=== PATIENT | female | born 1950 | race Caucasian/White ===

== ENCOUNTER → 2016-07-17 | Outpatient (CLI) | payer OTHER ==
[~2016-07-17] MED LIST: BIOTPOW20 PO; CALCIUM +D PO; COUM2.5T11 PO; PERC5TAB6 PO; SERT50TA PO; VITA200038 PO; ZOCO10TA PO
[2016-07-17 11:15] LABS: INR 0.94
[2016-07-17 11:29] LABS: MEAN CORPUSCULAR HEMOGLOBIN 29.4 pg (27.0-33.0); MEAN CORPUSCULAR HGB CONC 33.4 g/dl (32.0-36.5); MEAN CORPUSCULAR VOLUME 87.9 fl (80.0-96.0); RED CELL DISTRIBUTION WIDTH 13.7 % (11.5-14.5); WHITE BLOOD COUNT 5.1 K/mm3 (4.0-10.0)
--- NOTE | 2016-07-17 11:30 | REP ---
Chest two views HISTORY: Preop Comparison: None An ill-defined parenchymal density is present in the left lower lobe. The right lung is clear. The heart is normal in size. The pulmonary vasculature is normal in appearance. The bony structure is intact. IMPRESSION: There is an ill-defined parenchymal density in the left lower lobe. CT of the chest is recommended for further evaluation. Signed by Yusuf Rankin MD 07/17/2016 11:21 A
--- NOTE | 2016-07-17 11:31 | ECGEPIP ---
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
[2016-07-17 11:34] LABS: ALBUMIN 4.2 GM/DL (3.2-5.2); ALBUMIN/GLOBULIN RATIO 1.45 (1.00-1.93); ALKALINE PHOSPHATASE 112 U/L (45-117); ALT/SGPT 23 U/L (12-78); ANION GAP 6 MEQ/L (8-16); AST/SGOT 18 U/L (15-37); BILIRUBIN,TOTAL 0.6 MG/DL (0.2-1.0); BLOOD UREA NITROGEN 12 MG/DL (7-18); CALCIUM LEVEL 9.4 MG/DL (8.8-10.2); CARBON DIOXIDE LEVEL 29 MEQ/L (21-32); CHLORIDE LEVEL 106 MEQ/L (98-107); CREATININE FOR GFR 0.89 MG/DL (0.55-1.02); GLOMERULAR FILTRATION RATE > 60.0 (>45); GLUCOSE, FASTING 90 MG/DL (80-110); POTASSIUM SERUM 4.5 MEQ/L (3.5-5.1); SODIUM LEVEL 141 MEQ/L (136-145); TOTAL PROTEIN 7.1 GM/DL (6.4-8.2)
== END ==
LOC: M ADMPAT 09:14
PROVIDERS: ATTEND Orthopaedic Surgery
DX: Z01.818 Encounter for other preprocedural examination (principal); M17.12 Unilateral primary osteoarthritis, left knee

== ENCOUNTER → 2016-07-22 | Outpatient (CLI) | payer OTHER | LOC: M RAD 18:10 | PROVIDERS: ATTEND Family Medicine | DX: R91.8 Other nonspecific abnormal finding of lung field (principal) ==

== ENCOUNTER → 2016-07-24 | Outpatient (CLI) | payer OTHER ==
[~2016-07-24] MED LIST changes: +ISOVUE-370 76% 100ML VIAL (Q9967) As Ordered ONE
--- NOTE | 2016-07-24 19:15 | REP ---
CT of the chest with IV contrast: Comparison is the PA and lateral plain film study of the chest dated 07/17/2016. On the comparison plain film study. There is a poorly defined mass in the left mid lung. A CT was recommended for follow up. On the CT study today there is no left lung mass. Specifically there is no mass that would correlate with the finding on the plain film study. I note there is deformity of the left fourth rib anteriorly in the approximate location where this mass was identified on plain films. This rib deformity of a masquerading as a lung mass on plain films. There are no infiltrates or effusions. Lung gonzalez otherwise clear. There is no mediastinal, hilar or axillary adenopathy. The thoracic aorta is unremarkable. Cardiac size is normal. The visualized upper abdominal contents are unremarkable. Impression: There is no lung mass, in particular, there is no left lung mass. The finding on the comparison plain film study may be artifact from deformity of the anterior arch of the left fourth rib. Otherwise, negative CT study of the chest. Signed by Franco Ni MD 07/24/2016 07:07 P
== END ==
LOC: M RAD 17:28
PROVIDERS: ATTEND Family Medicine
DX: R91.8 Other nonspecific abnormal finding of lung field (principal)

== ENCOUNTER 2016-07-27 10:38 | Inpatient (IN) | payer OTHER ==
[2016-07-17 10:01] VITALS: BP 174/79
--- NOTE | 2016-07-22 16:23 | HPE ---
DATE OF ADMISSION: 07/27/2016 HISTORY OF PRESENT ILLNESS: This is a pleasant female with continuing symptomatic left knee osteoarthritis. She consented for a left total knee arthroplasty per Dr. Raz Arboleda. X-rays are consistent with advanced osteoarthritis. She recently saw Dr. Alexander for medical optimization, which we are still awaiting documentation saying she is cleared. ALLERGIES: None known to drugs. CURRENT MEDICATION LIST: - Zoloft 20 mg - Zocor 5 mg - vitamin D 1000 units - Biotin maximum strength 10,000 mcg - calcium 600 plus D 600/200 mg unit She has a prescription for Coumadin 5 mg which she will take the evening before surgery. MEDICAL PROBLEM LIST: Includes: 1. Left knee symptomatic osteoarthritis. 2. Depression. 3. Hypercholesteremia. SOCIAL HISTORY: She is not working. She has never smoked and she does not take in ethanol. FAMILY HISTORY: Positive for hypercholesteremia, heart disease, hypertension, cancer, thyroid disease, arthritis. REVIEW OF SYSTEMS: She denies chest pain, shortness of breath, dyspnea on exertion, fever, chills, malaise, upper respiratory or urinary tract symptoms. PHYSICAL EXAMINATION: Height 61 inches, weight 128. Temperature 98.4, blood pressure was taken at 130/80. She is a pleasant, well-developed, well-nourished female in no acute distress, alert and oriented times three. Mood and affect are appropriate. She is ambulating with favoring of the right lower extremity. No gross antalgia about the left. Left lower extremities were inspected. Skin temperature, sensory and motor are within normal limits. Left knee positive medial joint line tenderness with crepitance about the knee through flexion and extension. Otherwise stable about the collateral ligaments. Patellar and quad tendons without popliteal fossa, mass or pain. Hip range of motion is non-irritable or limited through internal and external range of motion. Bowel sounds times four, soft, nontender. Chest rises symmetrically. Regular rate and rhythm. Lungs are clear to auscultation. Neck is supple. Negative jugular venous distention (JVD) or bruits. Normocephalic. LABORATORY DATA AND DIAGNOSTICS: Reviewed. There was 20,000 E-coli on UA. In addition to blood, urine auto 1+, bacteria urine auto 1+, anion gap 6, prothrombin time 19.1, leukocyte esterase urine auto 3+, blood urine auto +1, WBC urine auto 4, RBC urine auto 6. GFR greater than 60. IMPRESSION: 1. Symptomatic left knee osteoarthritis. 2. The patient consented for a left total knee arthroplasty per Dr. Raz Arboleda. 3. Medical optimization completed by Dr. Alexander on 07/20/2016, we are still awaiting clearance report. 4. On-call to operating room (OR) 1 gram IV Kefzol in OR. 5. Sequential compression device (SCD) and thromboembolic-deterrent stockings (TEDS) in OR. 6. Bactrim DS times five days per positive Escherichia (E) coli on urinalysis (UA). The patient understands and agrees with the plan. PHUC
[~2016-07-27] VITALS: Ht 154.9 cm; Wt 59.0 kg
[~2016-07-27 10:38] MED LIST changes: -ISOVUE-370 76% 100ML VIAL (Q9967) As Ordered ONE
[2016-07-27] MEDS ORDERED: EPINEPHrine INJ 1 MG/ML 1ML AMP As Ordered ONE (10:56)
[2016-07-27] MEDS ORDERED: ceFAZolin 1GM INJ (J0690) As Ordered ONE (10:56)
[2016-07-27] MEDS ORDERED: TRANEXAMIC ACID 100 MG/ML 10ML VIAL As Ordered ONE (10:56)
[2016-07-27] MEDS ORDERED: BUPIVACAINE HCL 0.25% 30 ML VIAL As Ordered ONE (10:56)
[2016-07-27] MEDS ORDERED: ceFAZolin SOD 1 GM in D5W MINI-BAG PLUS 50 ML IV ONE (11:00)
[2016-07-27] MEDS ORDERED: LR 1,000 ML IV ONE (11:00)
[2016-07-27] MEDS ORDERED: fentaNYL 100 MCG/2 ML INJECTION (J3010) As Ordered ONE ×3 (11:21→12:21)
[2016-07-27] MEDS ORDERED: MIDAZOLAM INJ 2 MG/2 ML VIAL (J2250) As Ordered ONE ×2 (11:21→12:18)
[2016-07-27] MEDS ORDERED: MIDAZOLAM INJ 2 MG/2 ML VIAL (J2250) IV ONE (12:00)
[2016-07-27] MEDS ORDERED: fentaNYL 100 MCG/2 ML INJECTION (J3010) IV ONE (12:00)
[2016-07-27] MEDS ORDERED: PROPOFOL 200 MG/20 ML VIAL As Ordered ONE (13:03)
--- NOTE | 2016-07-27 13:12 | IPN ---
DATE OF SERVICE: 07/27/2016 The patient seen and examined. She wished to ahead with a knee replacement on the left. She has been through it on the right. She understands the nature of this, the risks of bleeding, infection, damage to nerves and vessels, persistent pain, wear loosening, blood clots, medical problems, , among others; and we will proceed with a left knee replacement, per her request.
[2016-07-27] MEDS ORDERED: MORPHINE 1MG/ML IN 0.9% NACL 100ML IV BAG As Ordered ONE (14:01)
[2016-07-27] MEDS ORDERED: fentaNYL 100 MCG/2 ML INJECTION (J3010) IV PRN (14:30)
[2016-07-27] MEDS ORDERED: FLEET ENEMA PR PRN (14:30)
[2016-07-27] MEDS ORDERED: diphenhydrAMINE INJ 50MG/ML VIAL (J1200) IV PRN (14:30)
[2016-07-27] MEDS ORDERED: NALBUPHINE HCL 10 MG/ML AMP (J2300) IV PRN (14:30)
[2016-07-27] MEDS ORDERED: PATIENT IS CURRENTLY ON AN ON-Q PAIN BUSTER PAIN RELIEF SYSTEM XX SCH (14:30)
[2016-07-27] MEDS ORDERED: NALOXONE INJ 0.4 MG/1 ML VIAL (J2310) IV PRN (14:30)
[2016-07-27] MEDS ORDERED: MORPHINE 1MG/ML IN 0.9% NACL 100ML IV BAG IV PRN (14:30)
[2016-07-27] MEDS ORDERED: ONDANSETRON 4MG/2ML VIAL (J2405) IV PRN ×3 (14:30)
[2016-07-27] MEDS ORDERED: EPIDURAL/PCA KEYS XX PRN (14:30)
[2016-07-27] MEDS ORDERED: ACETAMINOPHEN TAB 650MG DOSE (2X325MG) PO PRN (14:30)
[2016-07-27] MEDS ORDERED: LR 1,000 ML IV SCH (14:30)
[2016-07-27 15:10] VITALS: BP 131/62
[2016-07-27 15:45] VITALS: BP 125/69
--- NOTE | 2016-07-27 15:52 | CR.PDOC ---
[facility] Consultation Consultation HOSPITALIST CONSULT NOTE Date of consult: 07/27/2016 Referring Provider: Dr. Arboleda PCP: Dr. Alexander Reason for Consult: Medical management HPI: 66-year-old female with osteoarthritis, hyperlipidemia, depression who underwent total left knee arthroplasty today with Dr. Arboleda. We have been consulted for medical management of chronic medical issues. The patient is seen postoperatively, and she denies any chest pain, difficulty breathing, or vomiting. She reports that she is feeling well. Past medical history: osteoarthritis, hyperlipidemia, depression Past surgical history: Bilateral total knee arthroplasties, multiple surgeries on her fingers, multiple bunion surgery, hysterectomy Family history: Hyperlipidemia, heart disease, hypertension, cancer, thyroid disease, arthritis Social history: The patient has never smoked and she does not drink any alcohol. Allergies: No known drug allergies Review of systems: General: Negative for fever and chills Eyes: Negative For vision changes and ocular discharge ENT: Negative for sore throat and nose bleed Cardiovascular: Negative for chest pain and palpitations Respiratory: Negative for cough and shortness of breath GI: Negative for nausea, vomiting, diarrhea, constipation Musculoskeletal: Positive for chronic neck pain Skin: Negative for rash Neuro: Positive for headache, negative for dizziness Psych: Negative for depression and suicidal ideation Endocrine: Negative for polyuria : Negative for dysuria Heme: Negative for bleeding Home meds: See below Physical exam: Vital signs: Vital Sign - Last 24 Hours 07/27/16 07/27/16 07/27/16 07/27/16 11:02 11:25 11:35 11:50 Temp 98.0 Pulse 59 54 56 50 Resp 18 18 18 18 B/P (MAP) 129/64 (85) 114/65 (81) 117/70 (86) 100/57 (71) Pulse Ox 98 98 97 99 O2 Delivery Room Air High Flow Cannula High Flow Cannula High Flow Cannula O2 Flow Rate 3 3 3 07/27/16 07/27/16 07/27/16 07/27/16 12:07 12:15 14:06 14:20 Temp 96.7 Pulse 50 50 60 51 Resp 18 18 18 18 B/P (MAP) 100/58 (72) 113/59 (77) 105/50 (68) 102/55 (71) Pulse Ox 96 96 100 100 O2 Delivery High Flow Cannula High Flow Cannula Room Air Room Air O2 Flow Rate 3 3 07/27/16 07/27/16 07/27/16 14:35 14:50 15:10 Temp 96.2 97.8 Pulse 51 56 55 Resp 18 18 19 B/P (MAP) 111/56 (74) 116/57 (76) 131/62 (85) Pulse Ox 99 99 97 O2 Delivery Room Air Room Air Room Air Gen.: awake, alert, no acute distress Eyes: Extraocular movements intact, normal sclera ENT: Moist mucous membranes Cardiovascular: RRR, no murmurs rubs or gallops Lungs: clear to auscultation bilaterally, no rales, rhonchi, or wheeze Abdomen: Soft, NT/ND, normal BS Extremities: No peripheral edema Neuro: alert and oriented 3, normal speech, no focal deficits Psych: Normal mood with congruent affect Labs and radiology: See below Chest x-ray on 08-01 showed an ill-defined density in the left lower lobe CT of the chest on 07/24/2016 showed no evidence of lung mass, and it was suspected that the density seen on the chest x-ray was artifact from deformity of the anterior arch of the left fourth rib Assessment and plan: 66-year-old female with osteoarthritis, hyperlipidemia, depression who underwent total left knee arthroplasty today with Dr. Arboleda. We have been consulted for medical management. 1. Osteoarthritis: Management as per orthopedics. 2. Hyperlipidemia: Continue home statin. 3. Depression: Continue home Zoloft. 4. Abnormal chest x-ray on 07/17: This was followed up with a CT of the chest on . The CT did not show any evidence of a mass, and it showed that most likely the density seen on the chest x-ray was simply artifact from deformity of the anterior arch of the left fourth rib. DVT prophylaxis: As per her surgical team Thank you for this consult. We will continue to follow along with you. Dr. Lakshmi Martinez will assume coverage in the morning. Vital Signs/I&O Vital Signs Date Time Temp Pulse Resp B/P (MAP) Pulse Ox O2 Delivery O2 Flow Rate FiO2 07/27/16 15:10 97.8 55 19 131/62 (85) 97 Room Air 07/27/16 12:15 3 Allergies Coded Allergies: No Known Drug Allergy (Unverified Allergy, Mild, 07/27/16) Home Medications Scheduled Cholecalciferol (Vitamin D-3) 2,000 Unit Tab, 2,000 UNIT PO DAILY, (Reported) Sertraline Hcl (Sertraline HCl) 50 Mg Tab, 50 MG PO DAILY, (Reported) Simvastatin (Zocor) 10 Mg Tab, 10 MG PO QHS, (Reported) [Calcium +D] , 600 MG PO DAILY, (Reported) MIGEL BURR Jul 27, 2016 15:52
[2016-07-27] MEDS: LR 1,000 ML IV SCH (15:59)
[2016-07-27 16:45] VITALS: BP 125/65
[2016-07-27] MEDS ORDERED: WARFARIN SOD 5 MG TAB PO SCH (17:00)
[2016-07-27 18:00] VITALS: BP 148/70
[2016-07-27 18:45] VITALS: BP 141/72
[2016-07-27] MEDS: PERCOCET 5MG/325MG TAB PO PRN (19:01)
[2016-07-27] MEDS: ceFAZolin SOD 1 GM in D5W MINI-BAG PLUS 50 ML IV SCH (20:46)
[2016-07-27] MEDS: SIMVASTATIN 10 MG TAB PO SCH (20:46)
[2016-07-27] MEDS: SERTRALINE HCL 50 MG TAB PO SCH (20:46)
[2016-07-27 22:00] VITALS: BP 133/73
--- NOTE | 2016-07-28 00:23 | RO ---
DATE OF PROCEDURE: 07/27/2016 PREOPERATIVE DIAGNOSIS: Left knee osteoarthritis. POSTOPERATIVE DIAGNOSIS: Left knee osteoarthritis. PROCEDURE: Left total knee arthroplasty using a PFC rotating platform, cruciate retaining size 2.5 femur and a 2 tray, 12.5 polyethylene, 32 patellar button. SURGEON: Dr. Raz Arboleda MERCHANDISING DIRECTOR: Won Long ANESTHESIA: Spinal. ESTIMATED BLOOD LOSS: Less than 50 mL. COMPLICATIONS: None. INDICATIONS: This is a 66-year-old woman who has had some persistent gradually worsening left knee pain. She has been through a right knee replacement in the past and did well with that. She had severe arthritis involving her left knee, and she wished to go ahead with surgical treatment. She understood the nature of the procedure, risks of bleeding, infection, damage to nerves, vessels, persistent pain, wear, loosening, blood clots, medical problems, , among others. DESCRIPTION OF PROCEDURE: The patient was taken to the operating room, placed in supine position after spinal anesthesia was induced. Left lower extremity was prepped and draped in the usual sterile fashion. A time-out was performed. Tourniquet was inflated. I then created a longitudinal incision over the anterior aspect of the knee. Sharp dissection was carried down through subcutaneous tissue and a medial parapatellar arthrotomy was performed per routine. I then everted the patella, remove some of the fat pad and did a moderate medial release. I flexed the knee up, removed osteophytes. I then used the canal initiating reamer on the femoral side followed by the intramedullary guide set at 5 degrees of valgus and 10 mm cut. This was pinned in place by the multimedia production assistant and the distal femoral cut was made by the multimedia production assistant. This femur was sized to a 2.5, which is what the other side had been. The distal femoral holes were placed with the external rotation guide. Then, the 4-in-1 cutting block was then placed for the 2.5. This was pinned in place and the remaining four cuts were made. The retractors were then placed on the tibial side. The tibial alignment guide was then placed in appropriate amount of valgus and posterior slope. This was pinned in place approximately 8-9 mm off of the high side, which is the lateral side, and it seemed to be an appropriate cut. A little difficult. She did have a little dishing on the medial side where there was severe wear, so I chose this depth. This was pinned in place, the proximal tibia cut was made. I protected the posterior cruciate ligament (PCL), removed this bone and then used the mixer tender to remove soft tissue from either side of the knee and osteophytes from the posterior aspect. The PCL was still intact. I then used the spacer blocks, and the size 12.5 seemed to be the appropriate tissue balance in flexion and extension. Overall alignment was excellent. I then prepared the tibial tray. Retractors were placed. The size 2 tray fit nicely. This was pinned in place, drilled and broached. The trial components were then placed. I removed any remaining osteophytes, and the 12.5 seemed to be the appropriate stability in flexion/extension, had good alignment and the components fit very tightly. I then freehand cut the patella, measured it to be a 32 button which was then drilled and then the trial button was placed, put this through a range of motion. The patella tracked quite nicely. The drill holes were made in the end of the femur. The multimedia production assistant prepared the bone cement in the modern technique on the back table. I irrigated and dried the bony surfaces carefully. The tibial tray was then cemented in place followed by the size 12.5 x 2.5 polyethylene was inserted. We then cemented on the femoral component, removed excess bone cement and then brought the knee out in extension and then cemented on the patella, held this in place with a bone clamp, and the excess bone cement was removed. I then irrigated copiously, placed the TXA solution. We closed the deep layer with interrupted #1 Vicryl sutures. Once the cement had hardened, I removed the clamp and the remaining closure was a running Stratafix suture in each direction with the multimedia production assistant working in one direction and myself in the other. I put the knee through a range of motion. There was no clicking, the knee was very stable and had excellent alignment. Irrigated, closed the subcu with #2-0 Vicryl, the skin with angelika. I then placed the PainBuster catheter through the superolateral aspect of the knee and then primed this and secured it to the side of the thigh in the usual fashion. Sterile dressing was applied. Tourniquet had been deflated. She was taken to recovery in stable condition. There were no known complications. The plan will be routine postoperative for a knee replacement. The multimedia production assistant was instrumental in holding retractors and mixing the bone cement and assisting in wound closure.
[2016-07-28] MEDS: PERCOCET 5MG/325MG TAB PO PRN ×6 (00:39→22:43)
[2016-07-28] MEDS: LR 1,000 ML IV SCH (03:50)
[2016-07-28] MEDS: ceFAZolin SOD 1 GM in D5W MINI-BAG PLUS 50 ML IV SCH (05:41)
[2016-07-28 06:00] VITALS: BP 104/56
[2016-07-28] MEDS ORDERED: ONDANSETRON 4 MG TAB (S0181) PO PRN (06:45)
[2016-07-28] MEDS ORDERED: PERCOCET 5MG/325MG TAB PO PRN ×2 (06:45)
[2016-07-28 07:19] LABS: INR 1.32
[2016-07-28 07:29] LABS: CALCIUM LEVEL 8.3 MG/DL (8.8-10.2); CREATININE FOR GFR 1.02 MG/DL (0.55-1.02); GLOMERULAR FILTRATION RATE 58.1 (>45); MAGNESIUM LEVEL 2.1 MG/DL (1.8-2.4); POTASSIUM SERUM 3.9 MEQ/L (3.5-5.1)
[2016-07-28 07:31] LABS: BASO % 0.3 % (0.0-1.0); EOS # 0.1 K/mm3 (0.0-0.50); EOS % 0.8 % (0.0-3.0); LARGE UNSTAINED CELL # 0.1 K/mm3 (0.0-0.4); LARGE UNSTAINED CELL % 1.1 % (0.0-4.0); LYMPH # 1.4 K/mm3 (1.5-4.5); LYMPH % 16.5 % (24.0-44.0); MEAN CORPUSCULAR HGB CONC 33.5 g/dl (32.0-36.5); MEAN CORPUSCULAR VOLUME 89.5 fl (80.0-96.0); MONO # 0.5 K/mm3 (0.0-0.8); MONO % 5.4 % (0.0-5.0); NEUTROPHILS # 6.5 K/mm3 (1.8-7.7); NEUTROPHILS % 75.8 % (36.0-66.0); PLATELET COUNT, AUTOMATED 183 k/mm3 (150-450); RED CELL DISTRIBUTION WIDTH 13.5 % (11.5-14.5); WHITE BLOOD COUNT 8.6 K/mm3 (4.0-10.0)
[2016-07-28] MEDS: MIRALAX *UNIT DOSE* 17GM PACKET PO SCH ×2 (09:00→09:22)
[2016-07-28] MEDS: MOM 30ML SUSPENSION UDC PO SCH ×2 (09:00→09:22)
[2016-07-28] MEDS: SENOKOT S TAB PO SCH ×2 (09:22→20:44)
[2016-07-28] MEDS: ONDANSETRON 4 MG TAB (S0181) PO PRN (09:23)
[2016-07-28 10:00] VITALS: BP 116/58
[2016-07-28 14:00] VITALS: BP 160/74
--- NOTE | 2016-07-28 15:21 | IPNPDOC ---
Subjective Date Seen The patient was seen on 07/28/16. Subjective Chief Complaint/HPI The patient is a 66-year-old female admitted with a reason for visit of Arthritis Left Knee. Events since last encounter patient complains of severe pain at the surgical site awaiting pain meds so in some discomfort, also complained of nausea and vomiting this am howevere was able to tolerate breakfast. no fever or chills, no chest pain or SOB , no abdominal pain or diarrhea . Objective Physical Examination General Exam: Positive: Alert, Cooperative, No Acute Distress Eye Exam: Positive: PERRLA, Conjunctiva & lids normal, EOMI, Negative: Sclera icteric ENT Exam: Positive: Atraumatic, Mucous membr. moist/pink, Pharynx Normal Neck Exam: Positive: Supple, Negative: JVD, thyromegaly Chest Exam: Negative: Clear to auscultation, Normal air movement, Rales, Rhonchi, Wheezing, Diminished, Other Heart Exam: Positive: Rate Normal, Regular Rhythm, Normal S1, Normal S2, Negative: Murmurs, Rubs Abdomen Exam: Positive: Normal bowel sounds, Soft, Negative: Tenderness, Hepatospenomegaly Extremity Exam: Positive: Normal pulses, Negative: Clubbing, Cyanosis, Edema Assessment /Plan Problems (1) S/P total knee arthroplasty Status: Acute Problem Text: patient had elective left total knee arthroplasty for advanced osteoarthritis. pain control and dvt prophylaxis as per orthopedics. (2) Hyperlipidemia Status: Chronic (3) Depression Status: Chronic Plan/VTE VTE Prophylaxis Ordered?: Yes VS, I&O, 24H, Fishbone Vital Signs/I&O Vital Signs Date Time Temp Pulse Resp B/P (MAP) Pulse Ox O2 Delivery O2 Flow Rate FiO2 07/28/16 14:32 18 07/28/16 14:00 98.8 57 160/74 (102) 96 Room Air 07/28/16 00:39 97 07/27/16 12:15 3 I&O- Last 24 Hours up to 6 AM 07/28/16 06:00 Intake Total 2760 ml Output Total 1700 ml Balance 1060 ml Laboratory Data 24H LABS Laboratory Tests 2 07/28/16 06:45: White Blood Count 8.6, Red Blood Count 3.76L, Hemoglobin 11.3L, Hematocrit 33.6L , Mean Corpuscular Volume 89.5, Mean Corpuscular Hemoglobin 30.0, Mean Corpuscular Hemoglobin Concent 33.5, Red Cell Distribution Width 13.5, Platelet Count 183, Neutrophils (%) (Auto) 75.8H, Lymphocytes (%) (Auto) 16.5L, Monocytes (%) (Auto) 5.4H, Eosinophils (%) (Auto) 0.8, Basophils (%) (Auto) 0.3 , Neutrophils # (Auto) 6.5, Lymphocytes # (Auto) 1.4L, Monocytes # (Auto) 0.5, Eosinophils # (Auto) 0.1, Basophils # (Auto) 0.0, Large Unclassified Cells % 1.1 , Large Unclassified Cells # 0.1, Prothrombin Time 16.5H, Prothromb Time International Ratio 1.32, Anion Gap 7L, Glomerular Filtration Rate 58.1, Blood Urea Nitrogen 12, Creatinine 1.02, Sodium Level 136, Potassium Level 3.9, Chloride Level 103, Carbon Dioxide Level 26, Calcium Level 8.3L, Magnesium Level 2.1 CBC/BMP Laboratory Tests 07/28/16 06:45 Red Blood Count 3.76 L, Mean Corpuscular Volume 89.5, Mean Corpuscular Hemoglobin 30.0, Mean Corpuscular Hemoglobin Concent 33.5, Red Cell Distribution Width 13.5, Neutrophils (%) (Auto) 75.8 H, Lymphocytes (%) (Auto) 16.5 L, Monocytes (%) (Auto) 5.4 H, Eosinophils (%) (Auto) 0.8, Basophils (%) ( Auto) 0.3, Neutrophils # (Auto) 6.5, Lymphocytes # (Auto) 1.4 L, Monocytes # ( Auto) 0.5, Eosinophils # (Auto) 0.1, Basophils # (Auto) 0.0, Calcium Level 8.3 L LULA ARCHIBALD MD Jul 28, 2016 15:21
[2016-07-28] MEDS ORDERED: WARFARIN SOD 5 MG TAB PO ONE (17:00)
--- NOTE | 2016-07-28 17:26 | REP ---
AP LATERAL LEFT KNEE: 07/28/2016. Clinical history: Status post left total knee arthroplasty. Findings: No prior studies available. Two views are provided. The skin angelika anteriorly over the knee. There is a left total knee arthroplasty visible with the three components well-aligned in relationship to the alutiiq bone and each other catheter is noted laterally over the soft tissues of the knee. There is soft tissue swelling and some subcutaneous air indicating immediate postoperative state. Impression: 1. Status post left total knee arthroplasty. Signed by Deon Florence MD 07/28/2016 05:18 P
[2016-07-28 18:00] VITALS: BP 140/71
[2016-07-28] MEDS: SERTRALINE HCL 50 MG TAB PO SCH (20:44)
[2016-07-28] MEDS: SIMVASTATIN 10 MG TAB PO SCH (20:44)
[2016-07-28 22:00] VITALS: BP 161/65
[2016-07-29 06:00] VITALS: BP 167/74
[2016-07-29] MEDS: PERCOCET 5MG/325MG TAB PO PRN ×3 (06:40→20:21)
[2016-07-29 07:02] LABS: INR 2.05
[2016-07-29 07:06] LABS: BASO % 0.3 % (0.0-1.0); EOS # 0.1 K/mm3 (0.0-0.50); EOS % 1.4 % (0.0-3.0); LARGE UNSTAINED CELL # 0.1 K/mm3 (0.0-0.4); LARGE UNSTAINED CELL % 1.1 % (0.0-4.0); LYMPH # 1.5 K/mm3 (1.5-4.5); LYMPH % 15.3 % (24.0-44.0); MEAN CORPUSCULAR HEMOGLOBIN 29.8 pg (27.0-33.0); MEAN CORPUSCULAR HGB CONC 33.2 g/dl (32.0-36.5); MEAN CORPUSCULAR VOLUME 89.6 fl (80.0-96.0); MONO # 0.5 K/mm3 (0.0-0.8); MONO % 5.1 % (0.0-5.0); NEUTROPHILS # 7.6 K/mm3 (1.8-7.7); NEUTROPHILS % 76.8 % (36.0-66.0); PLATELET COUNT, AUTOMATED 231 k/mm3 (150-450); RED CELL DISTRIBUTION WIDTH 13.3 % (11.5-14.5); WHITE BLOOD COUNT 9.9 K/mm3 (4.0-10.0)
[2016-07-29 07:18] LABS: ANION GAP 4 MEQ/L (8-16); BLOOD UREA NITROGEN 11 MG/DL (7-18); CALCIUM LEVEL 8.8 MG/DL (8.8-10.2); CARBON DIOXIDE LEVEL 29 MEQ/L (21-32); CHLORIDE LEVEL 102 MEQ/L (98-107); CREATININE FOR GFR 0.91 MG/DL (0.55-1.02); GLOMERULAR FILTRATION RATE > 60.0 (>45); GLUCOSE, FASTING 123 MG/DL (80-110); MAGNESIUM LEVEL 2.5 MG/DL (1.8-2.4); POTASSIUM SERUM 4.3 MEQ/L (3.5-5.1); SODIUM LEVEL 135 MEQ/L (136-145)
[2016-07-29] MEDS: MIRALAX *UNIT DOSE* 17GM PACKET PO SCH (08:59)
[2016-07-29] MEDS: MOM 30ML SUSPENSION UDC PO SCH (08:59)
[2016-07-29] MEDS: SENOKOT S TAB PO SCH ×2 (08:59→20:20)
[2016-07-29] MEDS: ONDANSETRON 4 MG TAB (S0181) PO PRN (08:59)
--- NOTE | 2016-07-29 12:43 | IPNPDOC ---
Subjective Date Seen The patient was seen on 07/29/16. Subjective Chief Complaint/HPI The patient is a 66-year-old female admitted with a reason for visit of Arthritis Left Knee. Events since last encounter No complaints this morning, pain better controlled, no fever or chills, no chest pain or shortness of breath , no nausea or vomiting or diarrhea. Objective Physical Examination General Exam: Positive: Alert, Cooperative, No Acute Distress Eye Exam: Positive: PERRLA, Conjunctiva & lids normal, EOMI, Negative: Sclera icteric ENT Exam: Positive: Atraumatic, Mucous membr. moist/pink, Pharynx Normal Neck Exam: Positive: Supple, Negative: JVD, thyromegaly Chest Exam: Negative: Clear to auscultation, Normal air movement, Rales, Rhonchi, Wheezing, Diminished, Other Heart Exam: Positive: Rate Normal, Regular Rhythm, Normal S1, Normal S2, Negative: Murmurs, Rubs Abdomen Exam: Positive: Normal bowel sounds, Soft, Negative: Tenderness, Hepatospenomegaly Extremity Exam: Positive: Normal pulses, Negative: Clubbing, Cyanosis, Edema Assessment /Plan Problems (1) S/P total knee arthroplasty Status: Acute Problem Text: patient had elective left total knee arthroplasty for advanced osteoarthritis. pain control and dvt prophylaxis as per orthopedics. (2) Hyperlipidemia Status: Chronic (3) Depression Status: Chronic Plan/VTE VTE Prophylaxis Ordered?: Yes VS, I&O, 24H, Fishbone Vital Signs/I&O Vital Signs Date Time Temp Pulse Resp B/P (MAP) Pulse Ox O2 Delivery O2 Flow Rate FiO2 07/29/16 07:10 18 Room Air 07/29/16 06:00 98.0 54 167/74 (105) 100 07/28/16 00:39 97 07/27/16 12:15 3 I&O- Last 24 Hours up to 6 AM 07/29/16 06:00 Intake Total 2180 ml Output Total 750 ml Balance 1430 ml Laboratory Data 24H LABS Laboratory Tests 2 07/29/16 06:19: White Blood Count 9.9, Red Blood Count 4.06, Hemoglobin 12.1, Hematocrit 36.4, Mean Corpuscular Volume 89.6, Mean Corpuscular Hemoglobin 29.8, Mean Corpuscular Hemoglobin Concent 33.2, Red Cell Distribution Width 13.3, Platelet Count 231, Neutrophils (%) (Auto) 76.8H, Lymphocytes (%) (Auto) 15.3L, Monocytes (%) (Auto) 5.1H, Eosinophils (%) (Auto) 1.4, Basophils (%) (Auto) 0.3 , Neutrophils # (Auto) 7.6, Lymphocytes # (Auto) 1.5, Monocytes # (Auto) 0.5, Eosinophils # (Auto) 0.1, Basophils # (Auto) 0.0, Large Unclassified Cells % 1.1 , Large Unclassified Cells # 0.1, Prothrombin Time 23.2H, Prothromb Time International Ratio 2.05, Anion Gap 4L, Glomerular Filtration Rate > 60.0, Blood Urea Nitrogen 11, Creatinine 0.91, Sodium Level 135L, Potassium Level 4.3 , Chloride Level 102, Carbon Dioxide Level 29, Calcium Level 8.8, Magnesium Level 2.5H CBC/BMP Laboratory Tests 07/29/16 06:19 Red Blood Count 4.06, Mean Corpuscular Volume 89.6, Mean Corpuscular Hemoglobin 29.8, Mean Corpuscular Hemoglobin Concent 33.2, Red Cell Distribution Width 13.3 , Neutrophils (%) (Auto) 76.8 H, Lymphocytes (%) (Auto) 15.3 L, Monocytes (%) ( Auto) 5.1 H, Eosinophils (%) (Auto) 1.4, Basophils (%) (Auto) 0.3, Neutrophils # (Auto) 7.6, Lymphocytes # (Auto) 1.5, Monocytes # (Auto) 0.5, Eosinophils # ( Auto) 0.1, Basophils # (Auto) 0.0, Calcium Level 8.8 LULA ARCHIBALD MD Jul 29, 2016 12:43
[2016-07-29 14:00] VITALS: BP 139/69
[2016-07-29] MEDS ORDERED: WARFARIN SOD 2.5 MG TAB PO ONE (17:00)
[2016-07-29] MEDS: SIMVASTATIN 10 MG TAB PO SCH (20:21)
[2016-07-29] MEDS: SERTRALINE HCL 50 MG TAB PO SCH (20:21)
[2016-07-29 22:00] VITALS: BP 138/69
[2016-07-30] MEDS: PERCOCET 5MG/325MG TAB PO PRN (05:33)
[2016-07-30 06:00] VITALS: BP 135/72
[2016-07-30 07:24] LABS: BASO % 0.6 % (0.0-1.0); EOS # 0.1 K/mm3 (0.0-0.50); EOS % 1.5 % (0.0-3.0); LARGE UNSTAINED CELL # 0.1 K/mm3 (0.0-0.4); LARGE UNSTAINED CELL % 1.2 % (0.0-4.0); LYMPH # 1.2 K/mm3 (1.5-4.5); LYMPH % 15.1 % (24.0-44.0); MEAN CORPUSCULAR HEMOGLOBIN 29.9 pg (27.0-33.0); MEAN CORPUSCULAR HGB CONC 33.4 g/dl (32.0-36.5); MEAN CORPUSCULAR VOLUME 89.4 fl (80.0-96.0); MONO # 0.4 K/mm3 (0.0-0.8); MONO % 4.4 % (0.0-5.0); NEUTROPHILS # 6.2 K/mm3 (1.8-7.7); NEUTROPHILS % 77.3 % (36.0-66.0); PLATELET COUNT, AUTOMATED 237 k/mm3 (150-450); RED CELL DISTRIBUTION WIDTH 13.5 % (11.5-14.5)
[2016-07-30 07:29] LABS: INR 2.26
[2016-07-30 07:47] LABS: ANION GAP 5 MEQ/L (8-16); BLOOD UREA NITROGEN 10 MG/DL (7-18); CARBON DIOXIDE LEVEL 31 MEQ/L (21-32); CHLORIDE LEVEL 104 MEQ/L (98-107); CREATININE FOR GFR 0.89 MG/DL (0.55-1.02); GLOMERULAR FILTRATION RATE > 60.0 (>45); GLUCOSE, FASTING 113 MG/DL (80-110); MAGNESIUM LEVEL 2.2 MG/DL (1.8-2.4); POTASSIUM SERUM 4.1 MEQ/L (3.5-5.1); SODIUM LEVEL 140 MEQ/L (136-145)
[2016-07-30] MEDS ORDERED: PERC5TAB6 PO (08:41)
[2016-07-30] MEDS ORDERED: COUM2.5T11 PO (08:41)
[2016-07-30] MEDS: MOM 30ML SUSPENSION UDC PO SCH (09:45)
[2016-07-30] MEDS: MIRALAX *UNIT DOSE* 17GM PACKET PO SCH (09:45)
[2016-07-30] MEDS: SENOKOT S TAB PO SCH (09:45)
--- NOTE | 2016-08-05 09:31 | DSES ---
DATE OF ADMISSION: 07/27/2016 DATE OF DISCHARGE: 07/30/2016 ADMITTING DIAGNOSIS: Symptomatic left knee osteoarthritis. DISCHARGE DIAGNOSIS: Status post left total knee arthroplasty. HISTORY OF PRESENT ILLNESS: This is a pleasant female who underwent left total knee arthroplasty per Dr. Raz Arboleda. X-rays were consistent with advanced osteoarthritis. Medical optimization was per Dr. Alexander. OPERATION PERFORMED: Left total knee arthroplasty. HOSPITAL COURSE: The patient uneventfully underwent left total knee arthroplasty under spinal anesthesia and was returned to recovery comfortable. Our hospital team decided to discharge the patient on 07/30/2016 with the following instructions. Weightbearing as tolerated left lower extremity with walker. Coumadin and thromboembolic deterrent (MOLLY) stockings times 30 days. Diet is regular. Percocet as needed, pain. Optifoam dressing change in 4 days time. Followup at the orthopedic clinic 12-14 days for wound check, staple removal. Patient is encouraged to contact our office sooner with increased pain, drainage, redness, numbness and tingling down the lower extremity, fever greater than 101 or further concerns. PH[facility]
== END 2016-07-30 12:29 | disposition home health service (06) | DRG 302 ==
LOC: M OR 10:38 → M MS5PR 15:05
PROVIDERS: ADMIT Orthopaedic Surgery; ATTEND Orthopaedic Surgery
PROC: 0SRD0J9 Replacement of Left Knee Joint with Synthetic Substitute, Cemented, Open Approach (ICD-10-PCS; principal; 2016-07-27 13:00)
DX: M17.12 Unilateral primary osteoarthritis, left knee (principal); F32.9 Major depressive disorder, single episode, unspecified; E78.00 Pure hypercholesterolemia, unspecified; Z79.899 Other long term (current) drug therapy; Z96.651 Presence of right artificial knee joint

== ENCOUNTER → 2016-08-03 | Outpatient (REF) | payer OTHER ==
[2016-08-03 14:53] LABS: INR 2.18
== END ==
LOC: M SHH 13:52
PROVIDERS: ATTEND Orthopaedic Surgery
DX: Z51.81 Encounter for therapeutic drug level monitoring (principal); Z79.01 Long term (current) use of anticoagulants

== ENCOUNTER → 2016-08-06 | Outpatient (REF) | payer OTHER ==
[2016-08-06 12:26] LABS: INR 1.77
== END ==
LOC: M SHH 11:14
PROVIDERS: ATTEND Nurse Practitioner Family
DX: Z51.81 Encounter for therapeutic drug level monitoring (principal); Z79.01 Long term (current) use of anticoagulants

== ENCOUNTER → 2016-08-10 | Outpatient (REF) | payer OTHER ==
[2016-08-10 14:25] LABS: INR 1.76
== END ==
LOC: M SHH 13:25
PROVIDERS: ATTEND Nurse Practitioner Family
DX: Z51.81 Encounter for therapeutic drug level monitoring (principal); Z79.01 Long term (current) use of anticoagulants

== ENCOUNTER → 2016-08-13 | Outpatient (REF) | payer OTHER ==
[~2016-08-13] MED LIST changes: -COUM2.5T11 PO; +COUM2.5T17 PO; +PERC5TAB12 PO; -PERC5TAB6 PO
[2016-08-13 12:39] LABS: INR 1.97
== END ==
LOC: M SHH 11:55
PROVIDERS: ATTEND Nurse Practitioner Family
DX: Z79.01 Long term (current) use of anticoagulants (principal)

== ENCOUNTER → 2016-08-17 | Outpatient (CLI) | payer OTHER ==
[2016-08-17 10:54] LABS: INR 1.48
== END ==
LOC: M LAB 10:11
PROVIDERS: ATTEND Orthopaedic Surgery
DX: Z79.01 Long term (current) use of anticoagulants (principal)

== ENCOUNTER → 2016-08-20 | Outpatient (REF) | payer OTHER ==
[2016-08-20 11:38] LABS: INR 1.46
== END ==
LOC: M LABDRAW1 09:07
PROVIDERS: ATTEND Orthopaedic Surgery
DX: Z96.652 Presence of left artificial knee joint (principal); Z79.01 Long term (current) use of anticoagulants

== ENCOUNTER → 2016-08-24 | Outpatient (REF) | payer OTHER ==
[2016-08-24 12:15] LABS: INR 1.6
== END ==
LOC: M LABDRAW1 10:18
PROVIDERS: ATTEND Orthopaedic Surgery
DX: Z51.81 Encounter for therapeutic drug level monitoring (principal); Z79.01 Long term (current) use of anticoagulants

== ENCOUNTER 2016-09-01 09:15 | Outpatient (RCR) | payer OTHER | END 2016-09-14 | LOC: M PT 09:15 | PROVIDERS: ATTEND Orthopaedic Surgery | DX: Z51.89 Encounter for other specified aftercare (principal); M17.12 Unilateral primary osteoarthritis, left knee; Z96.651 Presence of right artificial knee joint ==

== ENCOUNTER → 2017-02-03 | Outpatient (REF) | payer OTHER | LOC: M SFHCPLAZ 11:23 | PROVIDERS: ATTEND Family Medicine | DX: E55.9 Vitamin D deficiency, unspecified (principal); Z86.39 Personal history of other endocrine, nutritional and metabolic disease ==

== ENCOUNTER → 2017-02-25 | Outpatient (CLI) | payer OTHER | LOC: M WHC 13:23 | DX: Z12.31 Encounter for screening mammogram for malignant neoplasm of breast (principal); Z13.820 Encounter for screening for osteoporosis; M85.851 Other specified disorders of bone density and structure, right thigh; M85.852 Other specified disorders of bone density and structure, left thigh; M85.88 Other specified disorders of bone density and structure, other site | CPT/HCPCS: 77067 ==

== ENCOUNTER → 2019-02-20 | Outpatient (CLI) | payer MEDICARE ==
[~2019-02-20] MED LIST changes: +SERT-141 PO; -SERT50TA PO
--- NOTE | 2019-02-20 14:27 | REPMRS ---
Patient History The patient states she has not had a clinical breast exam in over a year. No known family history of cancer. Digital Woman Screen Mammo: February 20, 2019 - Exam #: [id number] Bilateral CC and MLO view(s) were taken. Technologist: Swathi Reyes, Technologist Prior study comparison: February 25, 2017, digital woman screen mammo performed at [facility]. January 21, 2015, digital woman screen mammo performed at [facility]. September 20, 2013, digital woman screen mammo performed at [facility]. FINDINGS: There are scattered fibroglandular densities. There has been no change in the appearance of the mammogram from the prior studies. There is a mild amount of scattered fibroglandular density which is fairly symmetric. There is no interval development of dominant mass, architectural distortion, or grouped microcalcification suggestive of malignancy. 3-D tomosynthesis shows no additional findings. Assessment: BI-RADS/ACR category 1 mammogram. Negative Mammogram. Recommendation Routine screening mammogram of both breasts in 1 year (for women over age 40). This patient's Lifetime Breast Cancer Risk is estimated at 5.9 %. This mammogram was interpreted with the aid of an FDA-approved computer-aided dectection system. Electronically Signed By: Nestor Nielsen MD 02/20/19 [id number]
== END ==
LOC: M WHC 13:43
PROVIDERS: ATTEND Hospitalist
DX: Z12.31 Encounter for screening mammogram for malignant neoplasm of breast (principal)

== ENCOUNTER → 2019-03-13 | Outpatient (CLI) | payer MEDICARE ==
[2019-03-13 17:49] LABS: HEMATOCRIT 45.6 % (36.0-47.0); HEMOGLOBIN 14.4 g/dl (12.0-15.5); MEAN CORPUSCULAR HEMOGLOBIN 28.4 pg (27.0-33.0); MEAN CORPUSCULAR HGB CONC 31.6 g/dl (32.0-36.5); MEAN CORPUSCULAR VOLUME 89.9 fl (80.0-96.0); PLATELET COUNT, AUTOMATED 247 10^3/uL (150-450); RED BLOOD COUNT 5.07 10^6/uL (4.00-5.40); WHITE BLOOD COUNT 8.2 10^3/uL (4.0-10.0)
[2019-03-13 17:50] LABS: BASO # 0.1 10^3/uL (0.0-0.2); BASO % 0.6 % (0.0-1.0); EOS # 0.2 10^3/uL (0.0-0.5); EOS % 1.9 % (0.0-3.0); HEMATOCRIT 43.6 % (36.0-47.0); HEMOGLOBIN 14.4 g/dl (12.0-15.5); LYMPH # 2.1 10^3/uL (1.5-5.0); LYMPH % 24.4 % (24.0-44.0); MEAN CORPUSCULAR HEMOGLOBIN 29.3 pg (27.0-33.0); MEAN CORPUSCULAR VOLUME 88.8 fl (80.0-96.0); MONO # 0.5 10^3/uL (0.0-0.8); MONO % 5.4 % (0.0-5.0); NEUTROPHILS # 5.9 10^3/uL (1.5-8.5); NEUTROPHILS % 67.5 % (36.0-66.0); PLATELET COUNT, AUTOMATED 247 10^3/uL (150-450); RED BLOOD COUNT 4.91 10^6/uL (4.00-5.40); WHITE BLOOD COUNT 8.7 10^3/uL (4.0-10.0)
[2019-03-13 18:06] LABS: HEMOGLOBIN A1c 5.9 %
[2019-03-13 18:26] LABS: ALBUMIN 4.7 GM/DL (3.2-5.2); BILIRUBIN,TOTAL 0.5 MG/DL (0.2-1.0); CALCIUM LEVEL 9.3 MG/DL (8.8-10.2); CREATININE FOR GFR 1.01 MG/DL (0.55-1.30); GLOMERULAR FILTRATION RATE 58.2 (>45); POTASSIUM SERUM 3.6 MEQ/L (3.5-5.1); TOTAL PROTEIN 7.6 GM/DL (6.4-8.2)
[2019-03-13 18:31] LABS: ALBUMIN 4.8 GM/DL (3.2-5.2); BILIRUBIN,TOTAL 0.6 MG/DL (0.2-1.0); CALCIUM LEVEL 9.8 MG/DL (8.8-10.2); CHOLESTEROL RISK RATIO 3.111 (<5); GLOMERULAR FILTRATION RATE 58.9 (>45); POTASSIUM SERUM 3.7 MEQ/L (3.5-5.1); TOTAL PROTEIN 7.6 GM/DL (6.4-8.2)
== END ==
LOC: M PLALAB 15:27
PROVIDERS: ATTEND Hospitalist
DX: Z00.00 Encounter for general adult medical examination without abnormal findings (principal); E78.5 Hyperlipidemia, unspecified; Z79.01 Long term (current) use of anticoagulants; Z79.899 Other long term (current) drug therapy

== ENCOUNTER 2019-03-31 07:38 | Day surgery (SDC) | payer MEDICARE ==
[~2019-03-31] VITALS: Ht 154.9 cm; Wt 61.2 kg
[~2019-03-31 07:38] MED LIST changes: +LIDOCAINE 1% MDV 20ML VIAL SQ PRN; +LR 1,000 ML IV ONE; +MOVE1TAB PO; +RA T500C2 PO; +SIMV40TA20 PO; +ceFAZolin SOD 2 GM in IV 1 EA IV ONE
[2019-03-31] MEDS ORDERED: BUPIVACAINE HCL 0.5% 30 ML VIAL As Ordered ONE (08:23)
[2019-03-31] MEDS ORDERED: LIDOCAINE 2% MDV 20 ML VIAL As Ordered ONE (08:23)
[2019-03-31] MEDS ORDERED: BACITRACIN PWD 50,000 UNITS VIAL As Ordered ONE (08:23)
[2019-03-31] MEDS ORDERED: dexameTHASONE 4 MG/ML 1ML VIAL (J1100) As Ordered ONE (08:23)
[2019-03-31] MEDS ORDERED: MIDAZOLAM INJ 2 MG/2 ML VIAL (J2250) As Ordered ONE (09:39)
[2019-03-31] MEDS ORDERED: fentaNYL 100 MCG/2 ML INJECTION (J3010) As Ordered ONE (09:39)
[2019-03-31] MEDS ORDERED: propofoL 200 MG/20 ML VIAL As Ordered ONE ×2 (09:39→09:52)
--- NOTE | 2019-03-31 11:03 | REP ---
Clinical: Postoperative baseline evaluation. Technique: AP, lateral, oblique views of the right foot. Findings: Partial resection at the head of the fourth and fifth proximal phalanges noted. Stabilizing wire identified through the fifth toe. Overlying soft tissue swelling. Impression: Postoperative changes within normal limits. Electronically Signed by Jeremiah Cotter MD 03/31/2019 10:55 A
[2019-03-31 11:30] VITALS: BP 183/76
--- NOTE | 2019-04-03 09:59 | RO ---
DATE OF PROCEDURE: 03/31/2019 PREOPERATIVE DIAGNOSIS: Hammertoe deformity 4th and 5th toes right foot. POSTOPERATIVE DIAGNOSIS: Hammertoe deformity 4th and 5th toes right foot. SURGEON: Dr. Martin Villagomez DPM. COMPLIANCE LEAD: None. ANESTHESIA: Local MAC. IRRIGATION: Dilate bacitracin, neomycin, polymyxin B solution. Hemostasis ankle pneumatic tourniquet at 200 mmHg for 22 minutes right ankle. HARDWARE UTILIZED: 0.045 K-wire. ESTIMATED BLOOD LOSS: Less than 1 mL. DESCRIPTION OF OPERATION: On 03/31/2019 this 69-year-old white female was taken from her hospital room to the room to the operating room and placed on the operating room table in the supine position. Following the induction of IV sedation local and regional anesthesia, right lower extremity was prepped and draped in the usual aseptic manner. Attention was directed to the patient's 4th toe of the right foot. There was noted to be a hammer toe deformity. At this time a 2 cm incision was placed through the proximal interphalangeal joint. The incision was deepened to the subcutaneous tissues and all coursing venous tributaries were identified, underscore, ligated and electrocoagulated as necessary. A transverse tenotomy and capsulotomy was performed. The medial and lateral collateral ligaments were sharply dissected free off the head of the proximal phalanx utilizing a power saw and osteotomy was performed at the anatomical neck of the proximal phalanx and dorsal to plantar medial to lateral through and through. Attention was directed to the base of the middle phalanx utilizing a power saw and osteotomy was performed at the articular cartilage. Utilizing a 0.045 wire. Wire was driven through the middle and distal phalanx and a retrograded in the proximal phalanx utilizing C-arm control. The wound was flushed with copious amounts of dilate bacitracin, neomycin and polymyxin B solution. Utilizing a 4-0 suture a 4 stranded core repair performed of the tendon in a Melgar fashion. Skin was copated and maintained utilizing 4-0 Prolene in a simple interrupted and horizontal mattress type fashion. The wire was then bent, cut and a protective ball was placed on the end of the K-wire. Attention was then directed to the patient's 5th toe and the following procedure was performed: PROXIMAL INTERPHALAGEAL JOINT ARTHROPLASTY, 5TH TOE RIGHT FOOT: The procedure performed on the 4th toe is now performed on the 5th toe with the following variations: No K-wire was utilized to stabilize the 5th toe and the cartilage was not removed from the middle phalanx. Following the completion of the surgical procedure 4 mg of dexamethasone sodium phosphorus was instilled in the proximal surgical site. Attention was direct to bandaging with sterile compressive bandage applied consisting of Adaptic, 4x4's, splints and Koban. Ankle pneumatic tourniquet was rapidly deflated and instantaneous capillary filling was noted to digits 1-5 to the patient's right foot. The patient after having tolerated the procedure well was taken to the recovery room for further monitoring by the anesthesia department. Postoperative instructions were given upon discharge.
== END 2019-03-31 11:45 | disposition home or self-care (01) ==
LOC: M SDC 07:38
PROVIDERS: ATTEND Podiatrist
DX: M20.41 Other hammer toe(s) (acquired), right foot (principal); M79.671 Pain in right foot; E78.5 Hyperlipidemia, unspecified; M19.90 Unspecified osteoarthritis, unspecified site; F32.9 Major depressive disorder, single episode, unspecified; Z79.899 Other long term (current) drug therapy
CPT/HCPCS: 28285; 73630; 88300; J0690; J1100; J2250; J3010

== ENCOUNTER → 2019-07-19 | Outpatient (REF) | payer MEDICARE ==
[~2019-07-19] MED LIST changes: -LIDOCAINE 1% MDV 20ML VIAL SQ PRN; -LR 1,000 ML IV ONE; -ceFAZolin SOD 2 GM in IV 1 EA IV ONE
== END ==
LOC: M LAB REF 08:30
PROVIDERS: ATTEND Dermatology
DX: C44.41 Basal cell carcinoma of skin of scalp and neck (principal)

== ENCOUNTER → 2019-08-17 | Outpatient (REF) | payer MEDICARE | LOC: M LAB REF 14:35 | PROVIDERS: ATTEND Dermatology | DX: C44.41 Basal cell carcinoma of skin of scalp and neck (principal); L90.5 Scar conditions and fibrosis of skin; D22.4 Melanocytic nevi of scalp and neck ==

== ENCOUNTER 2019-10-04 10:50 | Day surgery (SDC) | payer MEDICARE ==
[~2019-10-04] VITALS: Ht 154.9 cm; Wt 58.6 kg
[2019-10-04] MEDS ORDERED: NS 1,000 ML IV ONE (11:30)
[2019-10-04] MEDS ORDERED: propofoL 200 MG/20 ML VIAL As Ordered ONE ×2 (11:37→12:01)
[2019-10-04] MEDS ORDERED: LIDOCAINE 2% 100MG/5ML SDV (FOR ANES.) As Ordered ONE (11:37)
[2019-10-04] MEDS ORDERED: ONDANSETRON 4MG/2ML VIAL As Ordered ONE (11:48)
[2019-10-04 12:25] VITALS: BP 173/81
--- NOTE | 2019-10-25 11:29 | ROOR ---
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 Procedure: Pre-Anesthesia Assessment: - The heart rate, respiratory rate, oxygen saturations, blood pressure, adequacy of pulmonary ventilation, and response to care were monitored throughout the procedure. The Colonoscope was introduced through the anus and advanced to the cecum, identified by appendiceal orifice and ileocecal valve. The colonoscopy was performed without difficulty. The patient tolerated the procedure well. Findings: The perianal and digital rectal examinations were normal. Non-bleeding internal hemorrhoids were found during retroflexion. The hemorrhoids were small and Grade I (internal hemorrhoids that do not prolapse). A diminutive polyp was found at 35 cm proximal to the anus. The polyp was sessile. The polyp was removed with a cold biopsy forceps. Resection and retrieval were complete. The exam was otherwise without abnormality on direct and retroflexion views. Impression: - Non-bleeding internal hemorrhoids. - One diminutive polyp at 35 cm proximal to the anus, removed with a cold biopsy forceps. Resected and retrieved. - The examination was otherwise normal on direct and retroflexion views. - The exam was otherwise normal to the cecum. Recommendation: - Patient has a contact number available for emergencies. The signs and symptoms of potential delayed complications were discussed with the patient. Return to normal activities tomorrow. Written discharge instructions were provided to the patient. - High fiber diet. - Discharge patient to home. - Continue present medications. - Await pathology results. - Repeat colonoscopy in 10 years for screening purposes. - Return to referring physician. - Telephone GI clinic for pathology results in 1 week. - The findings and recommendations were discussed with the patient. Steven Marie MD Steven Marie MD 10/04/2019 12:08:15 PM Electronically signed by Steven Marie MD Number of Addenda: 0 Note Initiated On: 10/04/2019 11:44 AM Estimated Blood Loss: Estimated blood loss: none.
== END 2019-10-04 12:35 | disposition home or self-care (01) ==
LOC: M OPP 10:50
PROVIDERS: ATTEND Internal Medicine Gastroenterology
DX: Z12.11 Encounter for screening for malignant neoplasm of colon (principal); K64.0 First degree hemorrhoids; D12.6 Benign neoplasm of colon, unspecified; I10 Essential (primary) hypertension; Z79.899 Other long term (current) drug therapy
CPT/HCPCS: 45380; 88305; J2405

== ENCOUNTER → 2020-01-02 | Outpatient (REF) | payer MEDICARE | LOC: M LAB REF 17:12 | PROVIDERS: ATTEND Dermatology | DX: C44.319 Basal cell carcinoma of skin of other parts of face (principal); L57.8 Other skin changes due to chronic exposure to nonionizing radiation ==

== ENCOUNTER → 2020-03-19 | Outpatient (REF) | payer MEDICARE | LOC: M LAB REF 19:12 | PROVIDERS: ATTEND Dermatology | DX: L57.0 Actinic keratosis (principal) ==

== ENCOUNTER → 2020-03-26 | Outpatient (CLI) | payer MEDICARE ==
[2020-03-26 11:52] LABS: HEMATOCRIT 42.6 % (36.0-47.0); HEMOGLOBIN 13.8 g/dl (12.0-15.5); MEAN CORPUSCULAR HEMOGLOBIN 29.1 pg (27.0-33.0); MEAN CORPUSCULAR HGB CONC 32.4 g/dl (32.0-36.5); MEAN CORPUSCULAR VOLUME 89.9 fl (80.0-96.0); PLATELET COUNT, AUTOMATED 226 10^3/uL (150-450); RED BLOOD COUNT 4.74 10^6/uL (4.00-5.40); WHITE BLOOD COUNT 6.5 10^3/uL (4.0-10.0)
[2020-03-26 12:22] LABS: ALT/SGPT 28 U/L (12-78); BLOOD UREA NITROGEN 15 MG/DL (7-18); CALCIUM LEVEL 9.6 MG/DL (8.8-10.2); CARBON DIOXIDE LEVEL 28 MEQ/L (21-32); CHLORIDE LEVEL 106 MEQ/L (98-107); CREATININE FOR GFR 0.98 MG/DL (0.55-1.30); GLOMERULAR FILTRATION RATE > 60.0 (>45); GLUCOSE, FASTING 98 MG/DL (70-100); POTASSIUM SERUM 3.9 MEQ/L (3.5-5.1); SODIUM LEVEL 141 MEQ/L (136-145)
[2020-03-26 12:23] LABS: ALBUMIN 4.2 GM/DL (3.2-5.2); BILIRUBIN,TOTAL 0.5 MG/DL (0.2-1.0); TOTAL PROTEIN 7.2 GM/DL (6.4-8.2)
[2020-03-26 12:31] LABS: TOTAL 25(OH) VITAMIN D 72.5 NG/ML (30.0-100.0)
[2020-03-26 13:12] LABS: HEMOGLOBIN A1c 5.6 %
== END ==
LOC: M LAB 11:28
PROVIDERS: ATTEND Hospitalist
DX: E55.9 Vitamin D deficiency, unspecified (principal); R73.03 Prediabetes

== ENCOUNTER → 2020-05-13 | Outpatient (CLI) | payer MEDICARE ==
--- NOTE | 2020-05-13 10:20 | REPMRS ---
Patient History Patient is postmenopausal and has history of other cancer at age 69. No known family history of cancer. Digital Woman Screen Mammo: May 13, 2020 - Exam #: [id number] Bilateral CC and MLO view(s) were taken. Technologist: RT Aaron Prior study comparison: February 20, 2019, bilateral digital woman screen mammo performed at [facility]. February 25, 2017, digital woman screen mammo performed at [facility]. January 21, 2015, digital woman screen mammo performed at [facility]. FINDINGS: There are scattered fibroglandular densities. The Volpara volumetric breast density category is:B. There has been no change in the appearance of the mammogram from the prior studies. There is a mild amount of scattered fibroglandular density which is fairly symmetric. There is no interval development of dominant mass, architectural distortion, or grouped microcalcification suggestive of malignancy. 3-D tomosynthesis shows no additional findings. Assessment: BI-RADS/ACR category 1 mammogram. Negative Mammogram. Recommendation Routine screening mammogram of both breasts in 1 year (for women over age 40). This patient's [facility] Lifetime Breast Cancer Risk is estimated at 5.5 %. This mammogram was interpreted with the aid of an FDA-approved computer-aided dectection system. Electronically Signed By: Nestor Nielsen MD 05/13/20 [id number]
== END ==
LOC: M WHC 09:20
PROVIDERS: ATTEND Hospitalist
DX: Z12.31 Encounter for screening mammogram for malignant neoplasm of breast (principal); R92.2 Inconclusive mammogram

== ENCOUNTER → 2021-02-24 | Outpatient (CLI) | payer MEDICARE | LOC: M WHC 10:25 | PROVIDERS: ATTEND Student in an Organized Health Care Education/Training Program | DX: Z13.820 Encounter for screening for osteoporosis (principal); M85.851 Other specified disorders of bone density and structure, right thigh; M85.852 Other specified disorders of bone density and structure, left thigh ==

== ENCOUNTER → 2022-03-17 | Outpatient (CLI) | payer MEDICARE ==
[~2022-03-17] MED LIST changes: +SIMV-252 PO; -ZOCO10TA PO
[2022-03-17 15:36] LABS: HEMATOCRIT 45.4 % (36.0-47.0); HEMOGLOBIN 14.5 g/dl (12.0-15.5); MEAN CORPUSCULAR HEMOGLOBIN 28.8 pg (27.0-33.0); MEAN CORPUSCULAR HGB CONC 31.9 g/dl (32.0-36.5); MEAN CORPUSCULAR VOLUME 90.3 fl (80.0-96.0); PLATELET COUNT, AUTOMATED 249 10^3/uL (150-450); RED BLOOD COUNT 5.03 10^6/uL (4.00-5.40); WHITE BLOOD COUNT 6.7 10^3/uL (4.0-10.0)
[2022-03-17 16:27] LABS: ALBUMIN 4.6 G/DL (3.2-5.2); ALKALINE PHOSPHATASE 103 U/L (46-116); ALT/SGPT 21 U/L (7.0-40); AST/SGOT 27 U/L (<34); BILIRUBIN,TOTAL 0.7 MG/DL (0.3-1.2); BLOOD UREA NITROGEN 15 MG/DL (9-23); CALCIUM LEVEL 10.8 MG/DL (8.3-10.6); CARBON DIOXIDE LEVEL 27 MMOL/L (20-31); CHLORIDE LEVEL 106 MMOL/L (98-107); CHOLESTEROL LEVEL 211 MG/DL (<200); CHOLESTEROL RISK RATIO 3.54 (<5); CREATININE FOR GFR 0.89 MG/DL (0.55-1.30); GLOMERULAR FILTRATION RATE > 60.0 (>39); GLUCOSE, FASTING 94 MG/DL (74-106); HDL CHOLESTEROL 59.6 MG/DL (>40); LDL CHOLESTEROL 120.4 MG/DL (<100); NON-HDL-C 151 MG/DL; POTASSIUM SERUM 4.5 MMOL/L (3.5-5.1); SODIUM LEVEL 143 MMOL/L (136-145); TOTAL PROTEIN 7.3 G/DL (5.7-8.2); TRIGLYCERIDES LEVEL 155 MG/DL (<150)
[2022-03-17 16:29] LABS: TOTAL 25(OH) VITAMIN D 85.4 NG/ML (20.0-100.0)
[2022-03-17 17:29] LABS: HEMOGLOBIN A1c 5.4 % (4.0-6.0)
== END ==
LOC: M PLALAB 13:31
PROVIDERS: ATTEND Student in an Organized Health Care Education/Training Program
DX: E78.5 Hyperlipidemia, unspecified (principal); Z86.39 Personal history of other endocrine, nutritional and metabolic disease; I10 Essential (primary) hypertension; E55.9 Vitamin D deficiency, unspecified; Z79.899 Other long term (current) drug therapy

== ENCOUNTER → 2022-04-17 | Outpatient (REF) | payer MEDICARE | LOC: M SFHCPLAZ 12:05 | PROVIDERS: ATTEND Family Medicine | DX: E83.52 Hypercalcemia (principal) ==

== ENCOUNTER → 2022-04-17 | Outpatient (CLI) | payer MEDICARE ==
[2022-04-17 15:00] LABS: THYROID STIMULATING HORMONE 1.184 uIU/ML (0.55-4.78)
[2022-04-17 15:01] LABS: PTH INTACT 49.8 PG/ML (18.5-88.0)
[2022-04-17 15:03] LABS: FREE T4 1.06 NG/DL (0.89-1.76)
== END ==
LOC: M PLALAB 12:18
PROVIDERS: ATTEND Student in an Organized Health Care Education/Training Program
DX: E83.52 Hypercalcemia (principal)

== ENCOUNTER 2022-10-26 09:17 | Emergency (ER) | payer MEDICARE ==
[~2022-10-26] VITALS: Ht 154.9 cm; Wt 62.2 kg
[2022-10-26] MEDS ORDERED: predniSONE 20 MG TAB PO ONE (11:20)
[2022-10-26] MEDS ORDERED: CETI-24 PO (11:21)
[2022-10-26] MEDS ORDERED: PRED20TA PO (11:21)
[2022-10-26 11:40] VITALS: BP 141/82; TEMP 98.3; O2SAT 98
[2022-10-26] MEDS ORDERED: LISI20TA33 (11:40)
[2022-10-26] MEDS ORDERED: SERT50TA29 (11:40)
== END 2022-10-26 11:47 | disposition home or self-care (01) ==
LOC: M ED 09:17
DX: L23.7 Allergic contact dermatitis due to plants, except food (principal); R21 Rash and other nonspecific skin eruption; I10 Essential (primary) hypertension; Z79.811 Long term (current) use of aromatase inhibitors; Z79.899 Other long term (current) drug therapy
CPT/HCPCS: 99283; J7512

== ENCOUNTER → 2023-03-10 | Outpatient (CLI) | payer MEDICARE ==
[~2023-03-10] MED LIST changes: +CETI-24 PO; +LISI20TA33; +PRED20TA PO; +SERT50TA29
[2023-03-10 14:07] LABS: BASO # 0.1 10^3/uL (0.0-0.2); EOS # 0.3 10^3/uL (0.0-0.5); HEMATOCRIT 43.7 % (36.0-47.0); HEMOGLOBIN 14.1 g/dl (12.0-15.5); LYMPH # 1.9 10^3/uL (1.5-5.0); LYMPH % 30.8 % (24.0-44.0); MEAN CORPUSCULAR HEMOGLOBIN 29.3 pg (27.0-33.0); MEAN CORPUSCULAR HGB CONC 32.3 g/dl (32.0-36.5); MEAN CORPUSCULAR VOLUME 90.7 fl (80.0-96.0); MONO # 0.4 10^3/uL (0.0-0.8); MONO % 6.5 % (2.0-8.0); NEUTROPHILS # 3.4 10^3/uL (1.5-8.5); NEUTROPHILS % 56.5 % (36.0-66.0); PLATELET COUNT, AUTOMATED 241 10^3/uL (150-450); RED BLOOD COUNT 4.82 10^6/uL (4.00-5.40)
[2023-03-10 14:31] LABS: HEMOGLOBIN A1c 5.7 % (4.0-6.0)
[2023-03-10 14:42] LABS: ALBUMIN 4.1 G/DL (3.2-5.2); BILIRUBIN,TOTAL 0.5 MG/DL (0.3-1.2); CALCIUM LEVEL 10.1 MG/DL (8.3-10.6); CHOLESTEROL RISK RATIO 3.49 (<5); CREATININE FOR GFR 1.03 MG/DL (0.55-1.30); GLOMERULAR FILTRATION RATE 56.2 (>39); HDL CHOLESTEROL 59.3 MG/DL (>40); LDL CHOLESTEROL 111.5 MG/DL (<100); NON-HDL-C 147.7 MG/DL; POTASSIUM SERUM 4.4 MMOL/L (3.5-5.1); TOTAL 25(OH) VITAMIN D 37.9 NG/ML (20.0-100.0); TOTAL PROTEIN 6.7 G/DL (5.7-8.2)
== END ==
LOC: M PLALAB 09:20
PROVIDERS: ATTEND Student in an Organized Health Care Education/Training Program
DX: I10 Essential (primary) hypertension (principal); E78.5 Hyperlipidemia, unspecified; E55.9 Vitamin D deficiency, unspecified; Z13.1 Encounter for screening for diabetes mellitus

== ENCOUNTER → 2023-03-26 | Outpatient (CLI) | payer MEDICARE | LOC: M PLAIMG 12:02 | PROVIDERS: ATTEND Student in an Organized Health Care Education/Training Program | DX: M25.552 Pain in left hip (principal) ==

== ENCOUNTER → 2023-06-07 | Outpatient (CLI) | payer MEDICARE ==
[2023-06-07 11:39] LABS: BASO % 0.7 % (0.0-1.0); EOS # 0.4 10^3/uL (0.0-0.5); EOS % 6.7 % (0.0-3.0); HEMATOCRIT 41.8 % (36.0-47.0); HEMOGLOBIN 13.6 g/dl (12.0-15.5); LYMPH # 1.8 10^3/uL (1.5-5.0); LYMPH % 32.8 % (24.0-44.0); MEAN CORPUSCULAR HEMOGLOBIN 30.2 pg (27.0-33.0); MEAN CORPUSCULAR HGB CONC 32.5 g/dl (32.0-36.5); MEAN CORPUSCULAR VOLUME 92.9 fl (80.0-96.0); MONO # 0.4 10^3/uL (0.0-0.8); MONO % 6.7 % (2.0-8.0); NEUTROPHILS # 2.9 10^3/uL (1.5-8.5); NEUTROPHILS % 53.1 % (36.0-66.0); PLATELET COUNT, AUTOMATED 260 10^3/uL (150-450); WHITE BLOOD COUNT 5.5 10^3/uL (4.0-10.0)
[2023-06-07 12:43] LABS: HEMOGLOBIN A1c 5.3 % (4.0-6.0)
[2023-06-07 12:58] LABS: BILIRUBIN,TOTAL 0.5 MG/DL (0.3-1.2); CALCIUM LEVEL 10.3 MG/DL (8.3-10.6); CHOLESTEROL RISK RATIO 3.33 (<5); CREATININE FOR GFR 0.98 MG/DL (0.55-1.30); GLOMERULAR FILTRATION RATE 59.6 (>39); HDL CHOLESTEROL 54.8 MG/DL (>40); LDL CHOLESTEROL 94.4 MG/DL (<100); NON-HDL-C 128.2 MG/DL; POTASSIUM SERUM 4.5 MMOL/L (3.5-5.1); TOTAL 25(OH) VITAMIN D 37.7 NG/ML (20.0-100.0); TOTAL PROTEIN 6.7 G/DL (5.7-8.2)
== END ==
LOC: M PLALAB 09:04
PROVIDERS: ATTEND Student in an Organized Health Care Education/Training Program
DX: I10 Essential (primary) hypertension (principal); E78.5 Hyperlipidemia, unspecified; E55.9 Vitamin D deficiency, unspecified; Z13.1 Encounter for screening for diabetes mellitus

== ENCOUNTER → 2023-06-17 | Outpatient (CLI) | payer MEDICARE ==
[2023-06-17 17:51] LABS: BASO # 0.1 10^3/uL (0.0-0.2); BASO % 0.7 % (0.0-1.0); EOS # 0.2 10^3/uL (0.0-0.5); HEMATOCRIT 40.4 % (36.0-47.0); HEMOGLOBIN 13.2 g/dl (12.0-15.5); LYMPH # 1.7 10^3/uL (1.5-5.0); LYMPH % 24.8 % (24.0-44.0); MEAN CORPUSCULAR HEMOGLOBIN 29.3 pg (27.0-33.0); MEAN CORPUSCULAR HGB CONC 32.7 g/dl (32.0-36.5); MEAN CORPUSCULAR VOLUME 89.6 fl (80.0-96.0); MONO # 0.4 10^3/uL (0.0-0.8); NEUTROPHILS # 4.5 10^3/uL (1.5-8.5); NEUTROPHILS % 65.2 % (36.0-66.0); PLATELET COUNT, AUTOMATED 241 10^3/uL (150-450); RED BLOOD COUNT 4.51 10^6/uL (4.00-5.40); WHITE BLOOD COUNT 6.9 10^3/uL (4.0-10.0)
== END ==
LOC: M PLALAB 14:22
PROVIDERS: ATTEND Student in an Organized Health Care Education/Training Program
DX: R89.8 Other abnormal findings in specimens from other organs, systems and tissues (principal)

== ENCOUNTER → 2023-07-02 | Outpatient (CLI) | payer MEDICARE | LOC: M CARPUL 08:58 | PROVIDERS: ATTEND Student in an Organized Health Care Education/Training Program | DX: I05.9 Rheumatic mitral valve disease, unspecified (principal) ==

== ENCOUNTER → 2023-07-22 | Outpatient (CLI) | payer MEDICARE | LOC: M WHC 15:09 | PROVIDERS: ATTEND Student in an Organized Health Care Education/Training Program | DX: Z12.31 Encounter for screening mammogram for malignant neoplasm of breast (principal) ==

== ENCOUNTER → 2024-07-26 | Outpatient (CLI) | payer MEDICARE ==
[2024-07-26 13:08] LABS: CHOLESTEROL RISK RATIO 3.93 (<5); CREATININE FOR GFR 0.9 MG/DL (0.55-1.30); GLOMERULAR FILTRATION RATE 67.9 (>39); HDL CHOLESTEROL 55.6 MG/DL (>40); LDL CHOLESTEROL 124.8 MG/DL (<100); NON-HDL-C 163.4 MG/DL
[2024-07-26 13:20] LABS: HEMOGLOBIN A1c 5.5 % (4.0-6.0)
== END ==
LOC: M PLALAB 10:34
PROVIDERS: ATTEND Student in an Organized Health Care Education/Training Program
DX: Z00.00 Encounter for general adult medical examination without abnormal findings (principal); E78.2 Mixed hyperlipidemia; F33.1 Major depressive disorder, recurrent, moderate; I10 Essential (primary) hypertension; R73.03 Prediabetes; Z12.31 Encounter for screening mammogram for malignant neoplasm of breast; Z23 Encounter for immunization
CPT/HCPCS: 36415; 80048; 80061; 83036; 90677; G0009; G0463

== ENCOUNTER → 2024-09-06 | Outpatient (CLI) | payer MEDICARE | LOC: M WHC 08-03 14:04 | PROVIDERS: ATTEND Student in an Organized Health Care Education/Training Program | DX: Z12.31 Encounter for screening mammogram for malignant neoplasm of breast (principal); R92.323 Mammographic fibroglandular density, bilateral breasts ==